=== PATIENT | female | born 1975 | race Caucasian/White ===

== ENCOUNTER 2016-05-27 09:45 | Outpatient (CLI) | payer MEDICARE, BC | END 2016-05-27 23:59 | disposition home or self-care (01) | LOC: WOU 09:45 | PROVIDERS: ATTEND Specialist | DX: L59.8 Other specified disorders of the skin and subcutaneous tissue related to radiation (principal); T81.31XA Disruption of external operation (surgical) wound, not elsewhere classified, initial encounter; Z85.850 Personal history of malignant neoplasm of thyroid; Z85.89 Personal history of malignant neoplasm of other organs and systems; E89.0 Postprocedural hypothyroidism; K11.7 Disturbances of salivary secretion | CPT/HCPCS: A6402; G0463 ==

== ENCOUNTER 2021-02-06 11:43 | Outpatient (CLI) | payer MEDICARE, BC ==
[2021-02-06] MEDS ORDERED: BACI/NEOM/POLY B OINT PKT 1 UDPKT PACKET ONE (12:17)
== END 2021-02-06 23:59 | disposition home or self-care (01) ==
LOC: WOU 11:43
PROVIDERS: ATTEND Surgery
DX: L03.113 Cellulitis of right upper limb (principal); Z93.1 Gastrostomy status; E46 Unspecified protein-calorie malnutrition; Z68.1 Body mass index [BMI] 19.9 or less, adult
CPT/HCPCS: 17250

== ENCOUNTER 2022-04-15 09:32 | Outpatient (CLI) | payer MEDICARE, BC | END 2022-04-15 23:59 | disposition home or self-care (01) | LOC: WOU 09:32 | PROVIDERS: ATTEND Specialist | DX: Z01.818 Encounter for other preprocedural examination (principal); L59.8 Other specified disorders of the skin and subcutaneous tissue related to radiation; C02.9 Malignant neoplasm of tongue, unspecified | CPT/HCPCS: G0463 ==